=== PATIENT | female | born 1955 | race Caucasian/White ===

== ENCOUNTER 2025-05-07 01:20 | Inpatient (IN) | payer MEDICARE, SELFPAY ==
[2025-05-07] VITALS (9 sets, daily range): BP systolic 102–141; BP diastolic 56–85; PULSE 70–90; RESP 14–18; TEMP 36.3–36.8; O2SAT 95–98; BMI 26.2; BMI 25.4
--- NOTE | 2025-05-07 | ECG_ITS ---
Test Reason : rythm check Blood Pressure : */* mmHG Vent. Rate : 85 BPM Atrial Rate : * BPM P-R Int : * ms QRS Dur : 100 ms QT Int : 412 ms P-R-T Axes : * 59 74 degrees QTcB Int : 490 ms Atrial fibrillation Nonspecific T wave abnormality Abnormal ECG When compared with ECG of 17-Oct-2017 10:31, Vent. rate has decreased by 71 bpm Nonspecific T wave abnormality has replaced inverted T waves in Inferior leads Referred By: Steve Pizarro Electronically Signed By: RAFIQ BARAKAT MD
--- NOTE | ~2025-05-07 | CT_ITS ---
CLINICAL HISTORY: trauma CT head without contrast Comparison: None provided Findings: No intra-axial mass, midline shift, hydrocephalus, or acute hemorrhage. There is a old lacunar infarct in the right basal ganglia. Mild cerebral atrophy. Bilateral mastoid effusions present. The orbits are unremarkable. There is no acute fracture. IMPRESSION: 1. No acute intracranial findings. 2. Bilateral mastoid effusions. This document has been electronically signed by: Jens Salas MD on 05/07/2025 02:12:25
--- NOTE | ~2025-05-07 | CT_ITS ---
CLINICAL HISTORY: trauma CT abdomen and pelvis without contrast Comparison: None provided Findings: There is centrilobular emphysema in the lung bases. There is a [id number] hiatal hernia. There is severe coronary artery calcification. There is partially visualized aortic valvular calcification which can be associated with aortic stenosis. There is an incidental calcification in the left lobe of the liver. The gallbladder, pancreas, spleen, and kidneys are unremarkable. There is a 2.4 cm right adrenal nodule containing a few calcifications. Hounsfield units of the soft tissue component of the nodule measure less than 10 consistent with a benign adenoma. Left adrenal gland is unremarkable. There is colonic diverticulosis. The gastrointestinal tract is otherwise unremarkable. There is no free fluid or free air. There is no hematoma. There is a small fat containing umbilical hernia. There is ectasia of the infrarenal abdominal aorta measuring 2.8 cm. There is diffuse arterial calcification. There are no enlarged lymph nodes. There are multiple small calcified uterine fibroids. The bladder is unremarkable. There is lumbar levoscoliosis. There are severe multilevel degenerative changes of the lumbar spine. There are mild chronic appearing compression fractures of T12 and L1. IMPRESSION: 1. No evidence of acute injury in the abdomen or pelvis. 2. Mild chronic appearing compression fractures of T12 and L1. 3. Multiple additional chronic findings as above. This document has been electronically signed by: Germain Osorio MD on 05/07/2025 05:05:27
--- NOTE | ~2025-05-07 | CT_ITS ---
CLINICAL HISTORY: trauma CT chest without contrast Comparison: None provided Findings: No acute fractures. The heart size is normal. The exam is somewhat limited due to the patient's arms which are within the scanner. There are diffuse COPD changes with scattered pulmonary scarring. There is 3 mm right upper lobe pleural-based pulmonary nodule. There is enlarged anterior paratracheal lymph node which measures 1.5 cm in short axis diameter. Additional smaller subcentimeter mediastinal lymph nodes. Dense calcific coronary atherosclerosis. There is a moderate-sized hiatal hernia. There is a partially calcified low-density 1.9 cm right adrenal gland lesion likely adenoma is benign calcification left lobe of the liver. Liver is somewhat small in size. There is small hepatic size and nodularity of the surface of the liver likely cirrhosis. The liver is incompletely included on the reypz-py-vswp of this exam. There is mild ectasia descending thoracic aorta. There are multilevel degenerative changes of the thoracic spine and upper lumbar spine. There is significant S shaped thoracolumbar spine scoliosis partially included on the field of view There is osteopenia. There is mild enlargement of the main pulmonary arteries. No focal infiltrates. No pleural effusions The upper abdomen is otherwise unremarkable. IMPRESSION: No acute fractures COPD changes and scattered pulmonary scarring Indeterminate enlarged 1.5 cm anterior paratracheal lymph node, compare with prior exams if available. CT PET follow-up to evaluate this enlarged lymph node is recommended 3 mm right upper lobe pleural-based pulmonary nodule likely benign six-month CT chest follow-up is recommended 1.9 cm right adrenal adenoma Significant S shaped thoracolumbar spine scoliosis Dense calcific coronary atherosclerosis correlate clinically Mild enlargement of the pulmonary arteries likely pulmonary hypertension Moderate-sized hiatal hernia This document has been electronically signed by: Kailash Leroy MD on 05/07/2025 05:32:59
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
[2025-05-07 01:47] LABS: MANUAL DIFF FLAG NO
[2025-05-07 01:48] LABS: Hematocrit 33.7 % (37.0-47.0); Hemoglobin 10.7 g/dl (12.0-16.0); Imm Gran Abs Auto 0.01 X10*3/uL (0.00-0.03); Imm Gran Pct Auto 0.2 % (0.0-0.4); Lymphocytes Absolute Auto 1.1 X10*3/uL (1.2-4.9); Mean Corpuscular HGB Conc 31.8 g/dl (31.0-35.0); Mean Corpuscular Hemoglobin 26.4 pg (27.0-33.0); Mean Corpuscular Volume 83.2 fL (80.0-98.0); NRBC Abs Auto 0.000 X10*3/uL (0.0-0.012); NRBC Pct Auto 0.0 /100WBC (0.0-0.2); Platelet Count 180 X10*3/uL (160-400); Red Blood Count 4.05 X10*6/uL (4.20-5.50); White Blood Count 5.6 X10*3/uL (4.8-10.8)
[2025-05-07 02:03] LABS: Alanine Aminotransferase 25 U/L (0-31); Albumin Level 3.6 g/dL (3.5-5.0); Alkaline Phosphatase 112 U/L (39-117); Anion Gap 13 (12-20); Aspartate Amino Transferase 32 U/L (5-31); Blood Urea Nitrogen 12 mg/dL (9-16); Calcium 9.0 mg/dL (8.4-10.2); Carbon Dioxide 22 mmol/L (22-29); Chloride 105 mmol/L (96-108); Creatinine Clr Calc Pharmacy 38.7; Estimated Glomerular Filt Rate 39; Magnesium 1.7 mg/dL (1.6-2.6); Potassium 3.1 mmol/L (3.3-5.1); Sodium 137 mmol/L (135-145); Total Protein 6.4 g/dL (6.5-8.0)
--- OUTSIDE RECORDS SUMMARY | 2025-05-07 02:04 | XMS_ITS | Patient Health Record ---
Author Organization [facility] Address [address] [place] [address] Care Team Providers Care Chlorinator Operator Name Role Phone GRACY BARDALES M.D. Primary Care Provider Ray Kendall Jr Unavailable Allergies Allergen (clinical drug ingredient) Drug/Non Drug Allergy documented on EMR Reaction Allergy Type Onset Date Status simvastatin Simvastatin MYALGIAS Drug Allergy Act frank Penicillin RASH Drug Allergy Active lovastatin Lovastatin MYALGIAS Drug Allergy Activ e Reason For Referral No Information Medications Medication SIG (Take, Route, Frequency, Duration) Notes Start Date End Date Status Metformin & Diet Manage Prod 500MG 2 PO QD Active Citalopram Hydrobromide 40 MG 1 tablet Orally 1 PO QD Acti ve MiraLax (colon prep) 17 GM/SCOOP mixed with Gatorade or Crystal Light Orally begin at 5:00 p.m. the day before the procedure for 1 day 08/19/2021 Active Levothyroxine Sodium 100 MCG 1 PO QD Active glipiZIDE ER 5 MG TAKE 2 TABLETS BY MO UTH TWICE DAILY Oral for 90 Active Metoprolol Tartrate 50 MG 1 tablet with food Orally ONCE A DAY Active Amiodarone HCl 200 MG TAKE 1 TABLET BY M OUTH EVERY DAY Oral for 90 Active Tylenol Active Warfarin Sodium 7.5 MG TAKE 1 TABLET BY MOUTH THREE DAYS A WEEK AND 1/2 TABLET 4 DAYS A WEEK Oral for 90 Active Vitamin B6 Active Aspirin 81 81 MG 1 tablet Orally Once a day for 30 day(s) Active metFORMIN HCl ER 500 MG TAKE 2 TABLETS B Y MOUTH TWICE DAILY Oral for 90 Active Furosemide 20 MG TAKE 1 TABLET BY VANDANA TH DAILY Oral for 90 Active Atorvastatin Calcium 80 MG 1 tablet Oral ly Once a day Active Omeprazole 20 MG TAKE 1 CAPSULE BY MO [facility] EVERY DAY Oral for 90 Active Immunizations Vaccine Route Administration Date Status Comme nts Influenza Unknown 07/09/2021 Administered Social History Tobacco Use: Social History Observation Description Date Details (start date - stop date) Former Smoker NA - NA Tobacco Use/Smoking Question Answer Notes Patient is a former smoker How long has it been since you last smoked? > 10 years Alcohol Screen Question Answer Notes Did you have a drink contain ing alcohol in the past year? Yes How often did you have a dri nk containing alcohol in the past year? Never (0 point) How many drinks did you have on a typical day when you were drinking in the past year? 1 or 2 drinks (0 point) How often did you have 6 or more drinks on one occasion in the past year? 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) Active confirmed Problem 600796633 Encounter for other preprocedural examination (Z01.818) Active confirmed Plan Of Treatment Pending Test Test Name Order Date LIVER PROFILE 02/12/2013 CBC w DIFF 02/21/2013 PROTHROMBIN TIME (PT, INR) 02/12/2013 PROTHROMBIN TIME (PT, INR) 02/21/2013 PARTIAL THROMBOPLASTIN TIME (PTT) 2012 [id number] (A1A) 02/12/2013 CERULOPLASMIN 02/12/2013 MITOCHONDRIAL AB 02/12/2013 SMOOTH MUSCLE ANTIBODIES 02/12/2013 Future Test Test Name Order Date COLONOSCOPY 08/19/2021 Insurance Providers Payer Name Payer Address Payer Phone Subscriber Number Group Number Insured Name Patient Relationship to Insured Coverage Start Date Coverage End Date [facility] [address] [address] [place] [address] [id number] SAM MOREIRA Self - patient is the insured Medical (General) History Medical History History ICD Code diabetes II Elevated over function tests with liver biopsy showing steatosis, mild steatohepatitis, and some increased fibrosis, 03/21 Afib hypertension Surgical History Surgery Date(Month/Year)
[2025-05-07 02:16] LABS: INTERNATIONAL NORM RATIO 1.3 (0.9-1.1); Prothrombin Time 14.5 SEC (10.9-12.4)
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
[2025-05-07 03:33] LABS: Appearance Urine Clear; Glucose Urine UA Negative (Negative); PH 6.0 (5.0-9.0); Specific Gravity - Urine <= 1.005 (1.005-1.025); UMIC TRIGGER UACC YES
[2025-05-07 03:38] LABS: UACC Culture Trigger YES
[2025-05-07] MEDS: Potassium Chloride ER 20 MEQ TAB.ER.PRT 40 MEQ PO (03:38)
--- NOTE | 2025-05-07 09:16 | PHA.MEDREC ---
Pharmacy Consult ? Medication Reconciliation Pharmacy has completed the medication reconciliation. Tried to speak with patient, however she was AMS. Patient was just discharged from SNF. Utilized claims and discharge packet from nursing facility to confirm med list.
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
[2025-05-07 11:41] LABS: Glucose, Whole Blood 128 mg/dL (60-115)
[2025-05-07 13:11] LABS: Glucose, Whole Blood 125 mg/dL (60-115)
--- NOTE | 2025-05-07 14:20 | PHA.MEDREC ---
Pharmacy Consult ? Medication Reconciliation Pharmacy has completed the medication reconciliation. Lena tried to talk to patient but she was very confused, called primary contact on file Selena (friend) who wanted us to call PCP. Used med list from the PCP office Nadine Omalley [phone] to confirm med list.
[2025-05-07 16:17] LABS: Glucose, Whole Blood 194 mg/dL (60-115)
[2025-05-07] MEDS: 0.9 % Sodium Chloride Flush 3 ML SYRINGE IVFLUSH ×2 (16:46→20:56)
[2025-05-07 20:50] LABS: Glucose, Whole Blood 143 mg/dL (60-115)
[2025-05-08 03:38] VITALS: BP 134/83; PULSE 81; RESP 17; TEMP 36.1; O2SAT 96
[2025-05-08 05:28] LABS: Hematocrit 36.1 % (37.0-47.0); Hemoglobin 11.2 g/dl (12.0-16.0); Mean Corpuscular HGB Conc 31.0 g/dl (31.0-35.0); Mean Corpuscular Hemoglobin 26.5 pg (27.0-33.0); Mean Corpuscular Volume 85.3 fL (80.0-98.0); NRBC Abs Auto 0.000 X10*3/uL (0.0-0.012); NRBC Pct Auto 0.0 /100WBC (0.0-0.2); Platelet Count 165 X10*3/uL (160-400); Red Blood Count 4.23 X10*6/uL (4.20-5.50); White Blood Count 4.6 X10*3/uL (4.8-10.8)
[2025-05-08 05:41] LABS: Anion Gap 15 (12-20); Blood Urea Nitrogen 17 mg/dL (9-16); Calcium 8.5 mg/dL (8.4-10.2); Carbon Dioxide 22 mmol/L (22-29); Chloride 108 mmol/L (96-108); Creatinine Clr Calc Pharmacy 51.9; Estimated Glomerular Filt Rate 57; Potassium 3.9 mmol/L (3.3-5.1); Sodium 141 mmol/L (135-145)
[2025-05-08 07:06] VITALS: BP 132/76; PULSE 69; RESP 14; TEMP 36.7; O2SAT 95
[2025-05-08 07:26] LABS: Glucose, Whole Blood 131 mg/dL (60-115)
[2025-05-08] MEDS: Aspirin Enteric Coated 81 MG TABLET.DR PO (07:49)
[2025-05-08 07:50] VITALS: BP 132/76; PULSE 69
[2025-05-08] MEDS: 0.9 % Sodium Chloride Flush 3 ML SYRINGE IVFLUSH ×3 (07:50→19:52)
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
[2025-05-08] MEDS: vancomycin HCL 1,000 MG, vancomycin HCL 750 MG in 0.9 % Sodium Chloride 500 ML 267.5 MG IV (10:28)
--- NOTE | 2025-05-08 11:09 | PHA.PROG ---
Admission Date/Time: May 07, 2025 06:56 Indication: Bacteremia Weight in k.3 kg Adjusted body weight in Kg: Line [place] body weight in Kg: Obesity Dosing Indication % IBW: BMI 25.4 Serum Creatinine - Last 168 Hours 05/07/25 05/08/25 01:44 05:09 Creatinine 1.34 0.97 Estimated CrCl and GFR - Last 168 Hours 05/07/25 05/08/25 01:44 05:09 Estim Creat Clear Calc 38.7 51.9 Estimated GFR 39 57 Vancomycin Loading Dose: 1750mg X1 Current Vancomycin Dosing Regimen: 1500mg Q24H Vancomycin Monitoring using AUC goal of 400 - 600 range with trough as surrogate marker: 590 Date and Time for next Vancomycin Level to be drawn: 05/10 @0900 Pharmacist Comments on Vancomycin Plan: Pt's renal function improved, trying to target higher trough per indication. Checking trough after one dose of 1500mg to potentially adjust lower. Predicted trough: 17.1. Vancomycin dosing will take advantage of [employer] as a clinical decision support tool that uses Bayesian modeling to calculate individual patient's pharmacokinetic parameters and forecast the patient's drug concentration time course with the target goal AUC 24 range of 400 - 600 mg/L/hr.
[2025-05-08 11:15] LABS: Glucose, Whole Blood 138 mg/dL (60-115)
[2025-05-08 15:13] VITALS: BP 103/59; PULSE 67; RESP 14; TEMP 36.2; O2SAT 98
[2025-05-08 16:10] LABS: Glucose, Whole Blood 133 mg/dL (60-115)
[2025-05-08 19:19] VITALS: BP 134/73; PULSE 74; RESP 18; TEMP 36.4; O2SAT 95
[2025-05-08 19:45] LABS: Glucose, Whole Blood 167 mg/dL (60-115)
[2025-05-09 04:00] VITALS: BP 131/66; PULSE 75; RESP 18; TEMP 36.6; O2SAT 94
[2025-05-09 07:09] VITALS: BP 130/72; PULSE 80; RESP 16; TEMP 36.9; O2SAT 94
[2025-05-09 07:29] LABS: Glucose, Whole Blood 111 mg/dL (60-115)
[2025-05-09 07:42] LABS: Creatinine Clr Calc Pharmacy 67.2; Estimated Glomerular Filt Rate > 60
[2025-05-09] MEDS: Aspirin Enteric Coated 81 MG TABLET.DR PO (09:35)
[2025-05-09] MEDS: Metoprolol Succinate ER 50 MG TAB.ER.24H PO (09:35)
[2025-05-09] MEDS: 0.9 % Sodium Chloride Flush 3 ML SYRINGE IVFLUSH (09:36)
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
--- NOTE | 2025-05-09 11:03 | P.F2F_ITS ---
Service Date Service Date: 05/09/25 Encounter Date of encounter: 05/09/25 Reasons for Services Signs and symptoms assessed: UTI with confusion and wondering Reason for long-term: neurological assessment, medication management and teach disease management Homebound: Leaving the home is medically contraindicated at this time without the asist of a device and/or another person due th the listed conditions above and below. Reason homebound: cognitively impaired / unsafe and weakness related to hospital stay Homebound supporting statement: Homebound due to confusion, should not drive, hospitalization needing treatment for confusion and therefore needs the assitance of another person Certification: Based on the above findings, I certify that this patient is confined to the home and needs intermittent long-term care, physical therapy and/or speech therapy, or continues to need occupational therapy. The patient is under my care, and I have initiated the establishment of the plan of care. The patient will be followed by a physician who will periodically review the plan of care. Time Spent With Patient Time: Total time managing care of this patient today ____ minutes.
--- NOTE | 2025-05-09 11:29 | MHC.CM.PN ---
DP: PT HAS BEEN MEDICALLY CLEARED FOR DC HOME WITH NEW [facility] . [facility] NOTIFIED OF TODAY'S DC. PT'S FRIEND WILL TRANSPORT HOME.
[2025-05-09 11:37] LABS: Glucose, Whole Blood 164 mg/dL (60-115)
== END 2025-05-09 13:37 | disposition home health service (06) | DRG 689 ==
LOC: HO.ED 03:57 → HO.EDOVER 08:32 → HO.S3 11:42
PROVIDERS: Family Medicine; Physician Assistant Medical; Admitting Provider Internal Medicine; Emergency Provider Emergency Medicine; PCP Family Medicine; Visit Provider Internal Medicine
DX: N39.0 Urinary tract infection, site not specified (principal); G92.8 Other toxic encephalopathy; I50.32 Chronic diastolic (congestive) heart failure; I48.20 Chronic atrial fibrillation, unspecified; E03.9 Hypothyroidism, unspecified; I11.0 Hypertensive heart disease with heart failure; E87.6 Hypokalemia; E11.9 Type 2 diabetes mellitus without complications; B96.20 Unspecified Escherichia coli [E. coli] as the cause of diseases classified elsewhere; E78.5 Hyperlipidemia, unspecified; F03.90 Unspecified dementia, unspecified severity, without behavioral disturbance, psychotic disturbance, mood disturbance, and anxiety; Z87.891 Personal history of nicotine dependence; Z79.01 Long term (current) use of anticoagulants; Z79.82 Long term (current) use of aspirin; Z79.84 Long term (current) use of oral hypoglycemic drugs; Z79.890 Hormone replacement therapy; Z79.899 Other long term (current) drug therapy
CPT/HCPCS: 36415; 70450; 71250; 72125; 74176; 80048; 80053; 81001; 82565; 82947; 83605; 83735; 84443; 85025; 85027; 85610; 87040; 87086; 87088; 87147; 87186; 87205; 93005; 97110; 97161; 97165; 99285; J0696; J3374

== ENCOUNTER → 2025-05-07 01:25 | Outpatient (BNV) | payer MEDICARE, SELFPAY | PROVIDERS: Emergency Provider Emergency Medicine; PCP Family Medicine; Visit Provider Radiology Diagnostic Radiology | DX: D35.01 Benign neoplasm of right adrenal gland (principal); J44.9 Chronic obstructive pulmonary disease, unspecified; M50.30 Other cervical disc degeneration, unspecified cervical region; H74.8X3 Other specified disorders of middle ear and mastoid, bilateral | CPT/HCPCS: 70450; 71250; 72125; 74176 ==

== ENCOUNTER 2025-05-07 06:56 | Outpatient (BNV) | payer MEDICARE, SELFPAY | END 2025-05-07 10:12 | PROVIDERS: Admitting Provider Internal Medicine; Emergency Provider Emergency Medicine; PCP Family Medicine; Visit Provider Internal Medicine Cardiovascular Disease | DX: I48.91 Unspecified atrial fibrillation (principal) | CPT/HCPCS: 93010 ==

== ENCOUNTER → 2025-05-07 06:56 | Outpatient (BNV) | payer MEDICARE, SELFPAY | PROVIDERS: Admitting Provider Internal Medicine; Emergency Provider Emergency Medicine; PCP Family Medicine; Visit Provider Family Medicine | DX: N39.0 Urinary tract infection, site not specified (principal); R41.82 Altered mental status, unspecified | CPT/HCPCS: 99223; 99232; 99239; G0180 ==